=== PATIENT | female | born 1985 | race Caucasian/White ===

== ENCOUNTER 2023-09-04 14:22 | Inpatient (IN) | payer MEDICAID ==
[~2023-09-04] VITALS: Ht 162.6 cm; Wt 99.8 kg
[~2023-09-04 14:22] MED LIST: FERR325E14 PO; PREN-385 PO
[2023-09-04 14:58] VITALS: BP 121/45; PULSE 74; RESP 18; TEMP 98.1; O2SAT 100
[2023-09-04 16:39] LABS: BASOPHILS % (AUTO) 0.9 % (0.0-2.0); EOSINOPHILS % (AUTO) 2.2 % (0.0-4.0); HEMOGLOBIN 10.1 g/dL (12.0-16.0); LYMPHOCYTES # (AUTO) 0.5 K/uL (2.5-16.5); LYMPHOCYTES % (AUTO) 21.6 % (20.5-51.1); MEAN CORPUSCULAR HEMOGLOBIN 34 pg (27-31); MEAN CORPUSCULAR HGB CONC 34 g/dL (33-37); MEAN CORPUSCULAR VOLUME 100.1 fL (80-94); MONOCYTES # (AUTO) 0.3 K/uL (0.8-1.0); NEUTROPHILS # (AUTO) 1.4 K/uL (1.8-7.7); NEUTROPHILS % (AUTO) 63.3 % (42.2-75.2)
[2023-09-04] MEDS: ONDANSETRON 4 MG/2 ML VIAL IVP ONE (16:40)
[2023-09-04] MEDS: MORPHINE SULFATE 4 MG/ML SYR IVP ONE ×2 (16:43→19:11)
[2023-09-04 16:48] LABS: ANION GAP 8.1 (8-16); CALCIUM 7.3 mg/dL (8.5-10.1); CARBON DIOXIDE 27.4 mmol/L (21-32); CREATININE 0.6 mg/dL (0.6-1.3); POTASSIUM 3.5 mmol/L (3.5-5.1)
[2023-09-04 16:49] LABS: INR 2.09 (0.8-1.2); PROTHROMBIN TIME 21.2 secs (10.8-13.4)
[2023-09-04 16:56] LABS: ALANINE AMINOTRANSFERASE 15 U/L (12-78); ALBUMIN 2.1 g/dL (3.4-5.0); ALKALINE PHOSPHATASE 249 U/L (50-136); ASPARTATE AMINOTRANSFERASE 48 U/L (15-37); BILIRUBIN,DIRECT 4.1 mg/dL (0.0-0.3); TOTAL BILIRUBIN 8.5 mg/dL (0.0-1.0); TOTAL PROTEIN, SERUM 5.8 g/dL (6.4-8.2)
[2023-09-04 17:15] LABS: PLATELET COUNT (AUTO) 41 K/uL (140-450); WHITE BLOOD COUNT (AUTO) 2.2 K/uL (4.8-10.8)
[2023-09-04] MEDS: FUROSEMIDE 40 MG/4 ML VIAL IVP ONE (17:16)
[2023-09-04] MEDS ORDERED: LACT10SO93 PO (17:42)
[2023-09-04] MEDS ORDERED: RIFA550T PO (17:42)
[2023-09-04] MEDS ORDERED: FURO40TA9 PO (17:42)
[2023-09-04 20:00] VITALS: PULSE 63; RESP 18; O2SAT 100
[2023-09-04] MEDS: ZOLPIDEM 5 MG TAB PO SCH (21:10)
[2023-09-04 21:50] VITALS: BP 123/50; PULSE 63; RESP 18; TEMP 98.6; O2SAT 100
[2023-09-04 23:37] VITALS: PULSE 63; RESP 12; O2SAT 100
[2023-09-05] MEDS: MORPHINE SULFATE 4 MG/ML SYR IVP PRN (02:21)
[2023-09-05 04:00] VITALS: BP 122/61; PULSE 69; RESP 18; TEMP 97; O2SAT 100
[2023-09-05 06:47] LABS: BASOPHILS % (AUTO) 0.6 % (0.0-2.0); EOSINOPHILS # (AUTO) 0.1 K/uL (0-0.4); EOSINOPHILS % (AUTO) 4.7 % (0.0-4.0); HEMATOCRIT 29.6 % (36-48); LYMPHOCYTES # (AUTO) 0.5 K/uL (2.5-16.5); LYMPHOCYTES % (AUTO) 21.8 % (20.5-51.1); MEAN CORPUSCULAR HEMOGLOBIN 34 pg (27-31); MEAN CORPUSCULAR HGB CONC 34 g/dL (33-37); MEAN CORPUSCULAR VOLUME 99.4 fL (80-94); MONOCYTES # (AUTO) 0.2 K/uL (0.8-1.0); MONOCYTES % (AUTO) 8.8 % (1.7-9.3); NEUTROPHILS # (AUTO) 1.6 K/uL (1.8-7.7); NEUTROPHILS % (AUTO) 64.1 % (42.2-75.2); PLATELET COUNT (AUTO) 40 K/uL (140-450); RED BLOOD CELL COUNT(AUTO) 2.98 MIL/uL (4.20-5.40); RED CELL DISTRIBUTION WIDTH 14.9 % (11.6-13.7); WHITE BLOOD COUNT (AUTO) 2.4 K/uL (4.8-10.8)
[2023-09-05 07:17] LABS: ANION GAP 8.8 (8-16); CALCIUM 7.2 mg/dL (8.5-10.1); CARBON DIOXIDE 26.4 mmol/L (21-32); CREATININE 0.6 mg/dL (0.6-1.3); POTASSIUM 3.2 mmol/L (3.5-5.1); TOTAL BILIRUBIN 7.2 mg/dL (0.0-1.0); TOTAL PROTEIN, SERUM 5.6 g/dL (6.4-8.2)
[2023-09-05 08:00] VITALS: PULSE 74; RESP 18; O2SAT 100
[2023-09-05] MEDS: FUROSEMIDE 40 MG/4 ML VIAL IVP SCH (08:24)
[2023-09-05] MEDS: PANTOPRAZOLE 40 MG INJ VIAL IVP SCH (08:24)
[2023-09-05] MEDS: SPIRONOLACTONE 25 MG TAB PO SCH (08:24)
[2023-09-05] MEDS: POTASSIUM CHLORIDE 10 MEQ TABER PO PRN (10:56)
[2023-09-05] MEDS: RIFAXIMIN 550 MG TAB PO SCH (11:30)
[2023-09-05] MEDS: LACTULOSE 20 GM/30 ML UDC PO SCH (12:39)
[2023-09-05 16:00] VITALS: BP 125/62; PULSE 72; RESP 18; TEMP 98.2; O2SAT 100
[2023-09-05 20:00] VITALS: PULSE 66; RESP 18; O2SAT 100
[2023-09-05] MEDS: traMADol 50 MG TAB PO PRN (20:20)
[2023-09-05] MEDS: ZOLPIDEM 5 MG TAB PO PRN (20:20)
[2023-09-05] MEDS ORDERED: RIFAXIMIN 550 MG TAB PO SCH (21:00)
[2023-09-06] VITALS: BP 122/61; PULSE 69; RESP 18; TEMP 97.4; O2SAT 100
[2023-09-06 07:20] LABS: BASOPHILS % (AUTO) 0.5 % (0.0-2.0); EOSINOPHILS # (AUTO) 0.1 K/uL (0-0.4); EOSINOPHILS % (AUTO) 4.5 % (0.0-4.0); HEMATOCRIT 28.4 % (36-48); HEMOGLOBIN 9.8 g/dL (12.0-16.0); LYMPHOCYTES # (AUTO) 0.5 K/uL (2.5-16.5); LYMPHOCYTES % (AUTO) 33.9 % (20.5-51.1); MEAN CORPUSCULAR HEMOGLOBIN 34 pg (27-31); MEAN CORPUSCULAR HGB CONC 34 g/dL (33-37); MONOCYTES # (AUTO) 0.2 K/uL (0.8-1.0); MONOCYTES % (AUTO) 15.6 % (1.7-9.3); NEUTROPHILS # (AUTO) 0.7 K/uL (1.8-7.7); NEUTROPHILS % (AUTO) 45.5 % (42.2-75.2); PLATELET COUNT (AUTO) 35 K/uL (140-450); RED CELL DISTRIBUTION WIDTH 14.6 % (11.6-13.7)
[2023-09-06 07:35] LABS: WHITE BLOOD COUNT (AUTO) 1.5 K/uL (4.8-10.8)
[2023-09-06 07:53] LABS: ALBUMIN 1.9 g/dL (3.4-5.0); ANION GAP 7.4 (8-16); CARBON DIOXIDE 29.1 mmol/L (21-32); CREATININE 0.6 mg/dL (0.6-1.3); MAGNESIUM 1.3 mg/dL (1.8-2.4); PHOSPHORUS 3.5 mg/dL (2.5-4.9); POTASSIUM 3.5 mmol/L (3.5-5.1); TOTAL BILIRUBIN 5.3 mg/dL (0.0-1.0); TOTAL PROTEIN, SERUM 5.7 g/dL (6.4-8.2)
[2023-09-06 08:00] VITALS: BP 112/50; PULSE 67; RESP 18; TEMP 97.8; O2SAT 99
[2023-09-06] MEDS ORDERED: LACTULOSE 20 GM/30 ML UDC PO SCH (09:00)
[2023-09-06] MEDS: LACTULOSE 20 GM/30 ML UDC PO SCH (09:00)
[2023-09-06] MEDS: FERROUS SULFATE 325 MG TABEC PO SCH (10:08)
[2023-09-06] MEDS: MORPHINE SULFATE 2 MG/ML SYR IVP PRN ×2 (10:53→21:34)
[2023-09-06] MEDS: MAG SULF 2000 MG/WATER PREMIX 50 ML IV SCH (15:41)
[2023-09-06 16:00] VITALS: BP 116/48; PULSE 67; RESP 18; TEMP 98; O2SAT 99
[2023-09-06 20:00] VITALS: PULSE 67; PULSE 73; RESP 19; TEMP 98.2; O2SAT 97; O2SAT 99
[2023-09-07 07:13] LABS: BASOPHILS % (AUTO) 0.9 % (0.0-2.0); EOSINOPHILS # (AUTO) 0.1 K/uL (0-0.4); EOSINOPHILS % (AUTO) 3.1 % (0.0-4.0); HEMATOCRIT 31.1 % (36-48); HEMOGLOBIN 10.6 g/dL (12.0-16.0); LYMPHOCYTES # (AUTO) 0.6 K/uL (2.5-16.5); LYMPHOCYTES % (AUTO) 28.3 % (20.5-51.1); MEAN CORPUSCULAR HEMOGLOBIN 34 pg (27-31); MEAN CORPUSCULAR HGB CONC 34 g/dL (33-37); MEAN CORPUSCULAR VOLUME 99.5 fL (80-94); MONOCYTES # (AUTO) 0.3 K/uL (0.8-1.0); MONOCYTES % (AUTO) 12.3 % (1.7-9.3); NEUTROPHILS # (AUTO) 1.2 K/uL (1.8-7.7); NEUTROPHILS % (AUTO) 55.4 % (42.2-75.2); PLATELET COUNT (AUTO) 51 K/uL (140-450); RED BLOOD CELL COUNT(AUTO) 3.13 MIL/uL (4.20-5.40); RED CELL DISTRIBUTION WIDTH 14.7 % (11.6-13.7); WHITE BLOOD COUNT (AUTO) 2.2 K/uL (4.8-10.8)
[2023-09-07 07:29] LABS: ANION GAP 7.4 (8-16); CALCIUM 7.5 mg/dL (8.5-10.1); CREATININE 0.6 mg/dL (0.6-1.3); MAGNESIUM 1.8 mg/dL (1.8-2.4); PHOSPHORUS 3.1 mg/dL (2.5-4.9); POTASSIUM 3.4 mmol/L (3.5-5.1); TOTAL BILIRUBIN 4.3 mg/dL (0.0-1.0); TOTAL PROTEIN, SERUM 6.1 g/dL (6.4-8.2)
[2023-09-07 08:00] VITALS: BP 119/40; PULSE 69; PULSE 70; RESP 17; RESP 19; TEMP 96.6; O2SAT 99
[2023-09-07 16:00] VITALS: BP 119/53; PULSE 64; RESP 18; TEMP 98.2; O2SAT 100
[2023-09-07] MEDS: LACTULOSE 20 GM/30 ML UDC PO SCH (17:26)
[2023-09-07 20:00] VITALS: PULSE 70; RESP 18; O2SAT 98
[2023-09-08] VITALS: BP 130/72; PULSE 67; RESP 18; TEMP 98; O2SAT 100
[2023-09-08 04:00] VITALS: BP 128/55; PULSE 73; RESP 18; TEMP 98.5; O2SAT 97
[2023-09-08 07:18] LABS: BASOPHILS % (AUTO) 0.5 % (0.0-2.0); EOSINOPHILS # (AUTO) 0.1 K/uL (0-0.4); EOSINOPHILS % (AUTO) 3.4 % (0.0-4.0); HEMATOCRIT 30.3 % (36-48); HEMOGLOBIN 10.4 g/dL (12.0-16.0); LYMPHOCYTES # (AUTO) 0.7 K/uL (2.5-16.5); LYMPHOCYTES % (AUTO) 25.1 % (20.5-51.1); MEAN CORPUSCULAR HEMOGLOBIN 34 pg (27-31); MEAN CORPUSCULAR HGB CONC 34 g/dL (33-37); MEAN CORPUSCULAR VOLUME 98.4 fL (80-94); MONOCYTES # (AUTO) 0.4 K/uL (0.8-1.0); MONOCYTES % (AUTO) 13.3 % (1.7-9.3); NEUTROPHILS # (AUTO) 1.6 K/uL (1.8-7.7); NEUTROPHILS % (AUTO) 57.7 % (42.2-75.2); PLATELET COUNT (AUTO) 41 K/uL (140-450); RED BLOOD CELL COUNT(AUTO) 3.08 MIL/uL (4.20-5.40); WHITE BLOOD COUNT (AUTO) 2.7 K/uL (4.8-10.8)
[2023-09-08 07:25] LABS: ALBUMIN 1.9 g/dL (3.4-5.0); CALCIUM 7.5 mg/dL (8.5-10.1); CARBON DIOXIDE 28.5 mmol/L (21-32); CREATININE 0.6 mg/dL (0.6-1.3); MAGNESIUM 1.7 mg/dL (1.8-2.4); PHOSPHORUS 3.1 mg/dL (2.5-4.9); POTASSIUM 3.5 mmol/L (3.5-5.1); TOTAL BILIRUBIN 4.1 mg/dL (0.0-1.0); TOTAL PROTEIN, SERUM 5.8 g/dL (6.4-8.2)
[2023-09-08 08:00] VITALS: PULSE 70; RESP 18; O2SAT 98
[2023-09-08] MEDS ORDERED: FERR325E14 PO (13:32)
[2023-09-08] MEDS ORDERED: FURO40TA9 PO (13:32)
[2023-09-08] MEDS ORDERED: SPIR25TA PO (13:32)
[2023-09-08] MEDS ORDERED: LACT10SO93 PO (13:32)
[2023-09-08] MEDS ORDERED: RIFA550T PO (13:32)
== END 2023-09-08 14:20 | disposition home or self-care (01) | DRG 280 ==
LOC: MED 14:22 → MTU 18:42
PROVIDERS: ADMIT Student in an Organized Health Care Education/Training Program; ATTEND Student in an Organized Health Care Education/Training Program
DX: K70.30 Alcoholic cirrhosis of liver without ascites (principal); D61.818 Other pancytopenia; K76.6 Portal hypertension; E88.09 Other disorders of plasma-protein metabolism, not elsewhere classified; I50.9 Heart failure, unspecified; I11.0 Hypertensive heart disease with heart failure; D75.89 Other specified diseases of blood and blood-forming organs; F10.21 Alcohol dependence, in remission; E87.6 Hypokalemia; D53.9 Nutritional anemia, unspecified; Z79.899 Other long term (current) drug therapy; Z88.8 Allergy status to other drugs, medicaments and biological substances
CPT/HCPCS: 36415; 71045; 76700; 80048; 80053; 80076; 82140; 83735; 83880; 84100; 84484; 85025; 85610; 87081; 93970; 96374; 96375; 99285; C9113; J1940; J2270; J2405; J3475; Q0092

== ENCOUNTER 2023-09-18 15:09 | Emergency (ER) | payer MEDICAID ==
[~2023-09-18] VITALS: Ht 162.6 cm; Wt 92.1 kg
[~2023-09-18 15:09] MED LIST changes: +FURO40TA9 PO; +LACT10SO93 PO; +RIFA550T PO; +SPIR25TA PO
[2023-09-18 15:29] VITALS: BP 121/58; PULSE 80; RESP 16; TEMP 97.7; O2SAT 99
[2023-09-18 16:10] LABS: BASOPHILS # (AUTO) 0.1 K/uL (0.00-0.22); BASOPHILS % (AUTO) 2.3 % (0.0-2.0); EOSINOPHILS % (AUTO) 0.8 % (0.0-4.0); HEMATOCRIT 30.3 % (36-48); HEMOGLOBIN 10.4 g/dL (12.0-16.0); LYMPHOCYTES # (AUTO) 0.5 K/uL (2.5-16.5); LYMPHOCYTES % (AUTO) 16.9 % (20.5-51.1); MEAN CORPUSCULAR HEMOGLOBIN 33 pg (27-31); MEAN CORPUSCULAR HGB CONC 35 g/dL (33-37); MEAN CORPUSCULAR VOLUME 96.8 fL (80-94); MONOCYTES # (AUTO) 0.3 K/uL (0.8-1.0); MONOCYTES % (AUTO) 10.7 % (1.7-9.3); NEUTROPHILS % (AUTO) 69.3 % (42.2-75.2); PLATELET COUNT (AUTO) 61 K/uL (140-450); RED BLOOD CELL COUNT(AUTO) 3.13 MIL/uL (4.20-5.40); RED CELL DISTRIBUTION WIDTH 15.2 % (11.6-13.7); WHITE BLOOD COUNT (AUTO) 2.9 K/uL (4.8-10.8)
[2023-09-18] MEDS: MORPHINE SULFATE 4 MG/ML SYR IVP ONE (16:15)
[2023-09-18 16:28] LABS: ANION GAP 11.1 (8-16); CALCIUM 7.1 mg/dL (8.5-10.1); CARBON DIOXIDE 26.1 mmol/L (21-32); CREATININE 0.7 mg/dL (0.6-1.3); POTASSIUM 3.2 mmol/L (3.5-5.1)
[2023-09-18 18:38] VITALS: BP 119/58; PULSE 78; RESP 18; TEMP 98.3; O2SAT 99
== END 2023-09-18 18:38 | disposition home or self-care (01) ==
LOC: MED 15:09
DX: D69.6 Thrombocytopenia, unspecified (principal); I11.0 Hypertensive heart disease with heart failure; I50.9 Heart failure, unspecified; Z90.49 Acquired absence of other specified parts of digestive tract; Z79.899 Other long term (current) drug therapy; Z88.6 Allergy status to analgesic agent
CPT/HCPCS: 36415; 71045; 80048; 85025; 96374; 99284; J2270; Q0092

== ENCOUNTER 2023-10-10 15:38 | Inpatient (IN) | payer MEDICAID ==
[~2023-10-10] VITALS: Ht 162.6 cm; Wt 94.8 kg
[2023-10-10 16:40] VITALS: BP 138/61; PULSE 81; RESP 22; TEMP 98.5; O2SAT 100
[2023-10-10 17:00] VITALS: O2SAT 100
[2023-10-10] MEDS ORDERED: FUROSEMIDE 40 MG TAB PO ONE (17:00)
[2023-10-10] MEDS ORDERED: traMADol 50 MG TAB PO ONE (17:00)
[2023-10-10] MEDS ORDERED: FURO40TA9 PO (17:05)
[2023-10-10] MEDS ORDERED: TRAM50TA3 PO (17:05)
[2023-10-10] MEDS ORDERED: LACT-191 PO (17:05)
[2023-10-10] MEDS: fentaNYL citrate 0.05 MG/ML VIAL IVP ONE (17:35)
[2023-10-10] MEDS: ONDANSETRON 4 MG/2 ML VIAL IVP ONE ×2 (17:36→19:09)
[2023-10-10 17:38] LABS: EOSINOPHILS % (AUTO) 1.2 % (0.0-4.0); HEMATOCRIT 32.4 % (36-48); LYMPHOCYTES # (AUTO) 0.7 K/uL (2.5-16.5); LYMPHOCYTES % (AUTO) 21.7 % (20.5-51.1); MEAN CORPUSCULAR HEMOGLOBIN 34 pg (27-31); MEAN CORPUSCULAR HGB CONC 34 g/dL (33-37); MEAN CORPUSCULAR VOLUME 99.7 fL (80-94); MONOCYTES # (AUTO) 0.2 K/uL (0.8-1.0); MONOCYTES % (AUTO) 7.6 % (1.7-9.3); NEUTROPHILS # (AUTO) 2.1 K/uL (1.8-7.7); NEUTROPHILS % (AUTO) 68.5 % (42.2-75.2); PLATELET COUNT (AUTO) 55 K/uL (140-450); RED BLOOD CELL COUNT(AUTO) 3.25 MIL/uL (4.20-5.40); RED CELL DISTRIBUTION WIDTH 17.3 % (11.6-13.7)
[2023-10-10 17:44] LABS: BILIRUBIN,URINE 3+ (NEGATIVE); BLOOD, URINE TRACE-I (NEGATIVE); COLOR,URINE YELLOW (YELLOW); LEUKOCYTE ESTERASE ,URINE 2+ (NEGATIVE); NITRITE, URINE POSITIVE (NEGATIVE); PH,URINE 7.5 (5.0-9.0); PROTEIN,URINE 1+ (NEGATIVE); UGLUCOSE TRACE (NEGATIVE); UROBILINOGEN,URINE >=8.0 EU/dL (0.2 - 1)
[2023-10-10 17:46] LABS: APPEARANCE,URINE SLIGHTLY CLOUDY (CLEAR)
[2023-10-10 17:49] LABS: ICTOTEST POSITIVE (NEGATIVE)
[2023-10-10 17:50] LABS: BACTERIA,URINE 3+ /HPF (None Seen); MUCUS,URINE None Seen /LPF (None Seen); RBC,URINE 0-5 /HPF (0-5); SQUAMOUS EPITHELIAL CELL,UR 4-10 (MOD) /LPF (0-3 (FEW))
[2023-10-10 17:51] LABS: AMPHETAMINE, URINE NEGATIVE ng/ml (NEG <=1000); BARBITURATE, URINE NEGATIVE ng/ml (NEG <=200); BENZODIAZEPINE, URINE POSITIVE ng/mL (NEG <=200)
[2023-10-10 17:52] LABS: CANNABINOID, URINE NEGATIVE ng/mL (NEG <=50); COCAINE, URINE NEGATIVE ng/mL (NEG <=300); OPIATE, URINE NEGATIVE ng/mL (NEG <=2000); PHENCYCLIDINE SCREEN,URINE NEGATIVE ng/mL (NEG <=25)
[2023-10-10] MEDS: LACTULOSE 20 GM/30 ML UDC PO ONE (17:56)
[2023-10-10 18:05] LABS: ALBUMIN 2.2 g/dL (3.4-5.0); ANION GAP 11.5 (8-16); CALCIUM 8.1 mg/dL (8.5-10.1); CARBON DIOXIDE 25.7 mmol/L (21-32); CREATININE 0.7 mg/dL (0.6-1.3); POTASSIUM 4.2 mmol/L (3.5-5.1); TOTAL BILIRUBIN 8.2 mg/dL (0.0-1.0); TOTAL PROTEIN, SERUM 6.9 g/dL (6.4-8.2)
[2023-10-10] MEDS ORDERED: cefTRIAXone 1,000 MG VIAL ONE (19:03)
[2023-10-10 19:16] LABS: LACTIC ACID 1.9 mmol/L (0.4-2.0)
[2023-10-10] MEDS ORDERED: FURO-570 PO (19:40)
[2023-10-10 19:58] VITALS: O2SAT 97
[2023-10-10 22:00] VITALS: PULSE 73; O2SAT 100
[2023-10-10] MEDS: ZOLPIDEM 5 MG TAB PO SCH (22:00)
[2023-10-10] MEDS: LEVOFLOXACIN 500 MG/D5W PREMIX 100 ML IV SCH (23:30)
[2023-10-11] VITALS (7 sets, daily range): BP systolic 114–131; BP diastolic 52–65; PULSE 66–88; RESP 17–19; TEMP 97–98.4; O2SAT 99–100
[2023-10-11] MEDS: HYDROmorphone 1 MG/ML AMP IVP PRN (00:43)
[2023-10-11 07:08] LABS: EOSINOPHILS # (AUTO) 0.1 K/uL (0-0.4); EOSINOPHILS % (AUTO) 1.9 % (0.0-4.0); HEMATOCRIT 27.8 % (36-48); HEMOGLOBIN 9.6 g/dL (12.0-16.0); LYMPHOCYTES # (AUTO) 0.6 K/uL (2.5-16.5); LYMPHOCYTES % (AUTO) 19.6 % (20.5-51.1); MEAN CORPUSCULAR HEMOGLOBIN 35 pg (27-31); MEAN CORPUSCULAR HGB CONC 35 g/dL (33-37); MEAN CORPUSCULAR VOLUME 100.1 fL (80-94); MONOCYTES # (AUTO) 0.3 K/uL (0.8-1.0); NEUTROPHILS # (AUTO) 2.1 K/uL (1.8-7.7); NEUTROPHILS % (AUTO) 68.5 % (42.2-75.2); RED BLOOD CELL COUNT(AUTO) 2.77 MIL/uL (4.20-5.40); RED CELL DISTRIBUTION WIDTH 17.3 % (11.6-13.7)
[2023-10-11 07:12] LABS: PLATELET COUNT (AUTO) 45 K/uL (140-450)
[2023-10-11 07:13] LABS: ANION GAP 9.2 (8-16); CALCIUM 7.7 mg/dL (8.5-10.1); CARBON DIOXIDE 25.4 mmol/L (21-32); CREATININE 0.7 mg/dL (0.6-1.3); POTASSIUM 3.6 mmol/L (3.5-5.1); TOTAL BILIRUBIN 9.5 mg/dL (0.0-1.0); TOTAL PROTEIN, SERUM 6.3 g/dL (6.4-8.2)
[2023-10-11] MEDS: LACTULOSE 20 GM/30 ML UDC PO SCH (09:32)
[2023-10-11] MEDS: FERROUS SULFATE 325 MG TABEC PO SCH (09:32)
[2023-10-11] MEDS: PANTOPRAZOLE 40 MG INJ VIAL IVP SCH (09:32)
[2023-10-11] MEDS: RIFAXIMIN 550 MG TAB PO SCH (09:33)
[2023-10-11] MEDS: FUROSEMIDE 40 MG TAB PO SCH (09:33)
[2023-10-11] MEDS: SPIRONOLACTONE 25 MG TAB PO SCH (09:33)
[2023-10-11] MEDS: ONDANSETRON 4 MG/2 ML VIAL IVP PRN (14:03)
[2023-10-11] MEDS: LEVOFLOXACIN 500 MG/D5W PREMIX 100 ML IV SCH (21:41)
[2023-10-12 04:00] VITALS: BP 113/57; PULSE 79; RESP 16; TEMP 98.6; O2SAT 100
[2023-10-12 07:19] LABS: BASOPHILS % (AUTO) 0.7 % (0.0-2.0); EOSINOPHILS # (AUTO) 0.1 K/uL (0-0.4); EOSINOPHILS % (AUTO) 3.4 % (0.0-4.0); HEMATOCRIT 26.8 % (36-48); HEMOGLOBIN 9.2 g/dL (12.0-16.0); LYMPHOCYTES # (AUTO) 0.5 K/uL (2.5-16.5); LYMPHOCYTES % (AUTO) 24.9 % (20.5-51.1); MEAN CORPUSCULAR HEMOGLOBIN 35 pg (27-31); MEAN CORPUSCULAR HGB CONC 35 g/dL (33-37); MONOCYTES # (AUTO) 0.2 K/uL (0.8-1.0); MONOCYTES % (AUTO) 11.8 % (1.7-9.3); NEUTROPHILS # (AUTO) 1.3 K/uL (1.8-7.7); NEUTROPHILS % (AUTO) 59.2 % (42.2-75.2); RED BLOOD CELL COUNT(AUTO) 2.67 MIL/uL (4.20-5.40); RED CELL DISTRIBUTION WIDTH 17.3 % (11.6-13.7)
[2023-10-12 07:41] LABS: ALBUMIN 1.8 g/dL (3.4-5.0); ANION GAP 9.7 (8-16); CALCIUM 7.7 mg/dL (8.5-10.1); CARBON DIOXIDE 26.9 mmol/L (21-32); CREATININE 0.8 mg/dL (0.6-1.3); PLATELET COUNT (AUTO) 43 K/uL (140-450); POTASSIUM 3.6 mmol/L (3.5-5.1); TOTAL BILIRUBIN 8.8 mg/dL (0.0-1.0); TOTAL PROTEIN, SERUM 6.1 g/dL (6.4-8.2); WHITE BLOOD COUNT (AUTO) 2.1 K/uL (4.8-10.8)
[2023-10-12 08:00] VITALS: BP 122/63; PULSE 70; RESP 17; RESP 18; TEMP 98.5; O2SAT 97
[2023-10-12 16:00] VITALS: BP 121/48; PULSE 75; RESP 18; TEMP 97.5; O2SAT 97
[2023-10-12 20:00] VITALS: BP 120/68; PULSE 83; RESP 17; RESP 18; TEMP 97.6; O2SAT 97
[2023-10-13 07:25] LABS: BASOPHILS % (AUTO) 0.9 % (0.0-2.0); EOSINOPHILS # (AUTO) 0.1 K/uL (0-0.4); EOSINOPHILS % (AUTO) 2.3 % (0.0-4.0); HEMATOCRIT 26.5 % (36-48); HEMOGLOBIN 9.3 g/dL (12.0-16.0); LYMPHOCYTES # (AUTO) 0.6 K/uL (2.5-16.5); LYMPHOCYTES % (AUTO) 19.7 % (20.5-51.1); MEAN CORPUSCULAR HEMOGLOBIN 35 pg (27-31); MEAN CORPUSCULAR HGB CONC 35 g/dL (33-37); MEAN CORPUSCULAR VOLUME 99.2 fL (80-94); MONOCYTES # (AUTO) 0.3 K/uL (0.8-1.0); MONOCYTES % (AUTO) 9.9 % (1.7-9.3); NEUTROPHILS # (AUTO) 1.9 K/uL (1.8-7.7); NEUTROPHILS % (AUTO) 67.2 % (42.2-75.2); PLATELET COUNT (AUTO) 44 K/uL (140-450); RED BLOOD CELL COUNT(AUTO) 2.67 MIL/uL (4.20-5.40); RED CELL DISTRIBUTION WIDTH 16.9 % (11.6-13.7); WHITE BLOOD COUNT (AUTO) 2.9 K/uL (4.8-10.8)
[2023-10-13 07:45] LABS: ANION GAP 10.3 (8-16); CALCIUM 8.1 mg/dL (8.5-10.1); CARBON DIOXIDE 27.1 mmol/L (21-32); CREATININE 0.8 mg/dL (0.6-1.3); POTASSIUM 3.4 mmol/L (3.5-5.1)
[2023-10-13 07:59] LABS: MAGNESIUM 1.2 mg/dL (1.8-2.4); PHOSPHORUS 3.7 mg/dL (2.5-4.9)
[2023-10-13 08:00] VITALS: BP 112/45; PULSE 82; RESP 17; RESP 18; TEMP 99; O2SAT 100
[2023-10-13] MEDS ORDERED: LEVO-481 PO (12:46)
[2023-10-13 13:29] VITALS: BP 108/49; PULSE 84; RESP 18; TEMP 98.4
== END 2023-10-13 16:13 | disposition home or self-care (01) | DRG 463 ==
LOC: MED 15:38 → MTU 19:24
PROVIDERS: ADMIT Student in an Organized Health Care Education/Training Program; ATTEND Student in an Organized Health Care Education/Training Program
DX: N39.0 Urinary tract infection, site not specified (principal); D61.818 Other pancytopenia; K76.6 Portal hypertension; E72.20 Disorder of urea cycle metabolism, unspecified; E44.1 Mild protein-calorie malnutrition; E88.09 Other disorders of plasma-protein metabolism, not elsewhere classified; I10 Essential (primary) hypertension; K74.60 Unspecified cirrhosis of liver; Z79.899 Other long term (current) drug therapy; Z68.35 Body mass index [BMI] 35.0-35.9, adult
CPT/HCPCS: 36415; 76705; 80048; 80053; 80305; 81001; 82140; 82550; 83605; 83690; 83735; 84100; 84484; 85025; 87040; 87086; 87186; 96365; 96375; 96376; 99285; G0482; J0696; J0713; J1170; J1956; J2405; J2470; J3010; Q0092

== ENCOUNTER 2023-11-12 12:00 | Emergency (ER) | payer MEDICAID ==
[~2023-11-12] VITALS: Ht 162.6 cm; Wt 89.4 kg
[~2023-11-12 12:00] MED LIST changes: +LACT-191 PO; +LEVO-481 PO
[2023-11-12 12:12] VITALS: BP 102/75; PULSE 100; RESP 15; TEMP 98.9; O2SAT 100
[2023-11-12] MEDS: ONDANSETRON 4 MG ODT PO ONE (13:32)
[2023-11-12] MEDS: KETOROLAC 30 MG/ML VIAL IM ONE (13:32)
[2023-11-12] MEDS ORDERED: IBUP-2218 PO (13:56)
[2023-11-12] MEDS ORDERED: CEPH-588 PO (13:56)
[2023-11-12] MEDS: MORPHINE SULFATE 4 MG/ML SYR IM ONE (14:39)
[2023-11-12 15:14] VITALS: BP 102/75; PULSE 100; RESP 15; TEMP 98.9; O2SAT 100
== END 2023-11-12 15:14 | disposition home or self-care (01) ==
LOC: MED 12:00
DX: S92.511A Displaced fracture of proximal phalanx of right lesser toe(s), initial encounter for closed fracture (principal); L03.116 Cellulitis of left lower limb; I11.0 Hypertensive heart disease with heart failure; I50.9 Heart failure, unspecified; Z79.899 Other long term (current) drug therapy; Z88.6 Allergy status to analgesic agent; W18.39XA Other fall on same level, initial encounter; Y93.89 Activity, other specified; Y92.89 Other specified places as the place of occurrence of the external cause; Y99.8 Other external cause status
CPT/HCPCS: 73590; 73630; 81025; 96372; 99284; J1885; J2270; Q0162